=== PATIENT | female | born 1945 | race Caucasian/White ===

== ENCOUNTER 2020-11-17 20:34 | Emergency (ER) | payer BC ==
[2020-11-17 20:53] VITALS: BP 144/75; PULSE 85
--- NOTE | 2020-11-17 21:03 | EDM.PDOC ---
ED HPI GENERAL MEDICAL PROBLEM - General Chief Complaint: Abdominal Pain Stated Complaint: UPPER ABDOMINAL PAIN, DIARRHEA Time Seen by Provider: 11/17/20 20:44 Source of Information: Reports: Patient, Family History Limitations: Reports: No Limitations - History of Present Illness INITIAL COMMENTS - FREE TEXT/NARRATIVE: Is a 75-year-old female. For the last couple of weeks whenever she eats she seems to get pain in the right upper quadrant that goes horizontally across to the left upper quadrant. It feels like it is cramping and rather painful. Apparently today the cramping has gotten worse and is about a 7 out of 10 and so she comes to the ER for evaluation. She does have a history of constipation but it also seems to alternate with diarrhea. She does not feel like she has an impaction in the rectum. She has had her gallbladder removed prior to 2015 and her appendix removed. She has never been diagnosed with irritable bowel syndrome. Today with the abdominal pain she had some nausea but no vomiting. She has had no documented fever no cough no congestion. She denies any urinary type symptoms. She tells me she had a colonoscopy in 2015. Bilateral Upper Abdomen Pain Score (Numeric/FACES): 7 - Related Data Allergies Allergy/AdvReac Type Severity Reaction Status Date / Time Sulfa (Sulfonamide Allergy Vomiting Verified 11/17/20 20:54 Antibiotics) Home Meds: Home Meds Fish Oil/[place]-3 Fatty Acids [Fish Oil 1,000 MG] 1 gm PO DAILY 12/01/14 [History] Lisinopril 20 mg PO DAILY 12/01/14 [History] acetaZOLAMIDE [Diamox] 1,000 mg PO BID 12/01/14 [History] Dicyclomine [Bentyl] 20 mg PO TID PRN #20 tab 11/18/20 [Rx] Ondansetron [Zofran] 4 mg PO Q6H #15 tab 11/18/20 [Rx] Past Medical History HEENT History: Reports: Cataract Cardiovascular History: Reports: None, Hypertension Respiratory History: Reports: None Genitourinary History: Reports: UTI, Recurrent Other Genitourinary History: bladder lift [employer] History: Reports: None Musculoskeletal History: Reports: None Neurological History: Reports: None Psychiatric History: Reports: None Endocrine/Metabolic History: Reports: None Oncologic (Cancer) History: Reports: None Dermatologic History: Reports: None - Past Surgical History HEENT Surgical History: Reports: Cataract Surgery Cardiovascular Surgical History: Reports: None Respiratory Surgical History: Reports: None GI Surgical History: Reports: Appendectomy, Cholecystectomy, Colonoscopy Social & Family History - Family History Family Medical History: No Pertinent Family History - Tobacco Use Tobacco Use Status *Q: Never Tobacco User Second Hand Smoke Exposure: No - Caffeine Use Caffeine Use: Reports: None - Recreational Drug Use Recreational Drug Use: No - Living Situation & Occupation Occupation: Employed ED ROS GENERAL - Review of Systems Review Of Systems: See Below Constitutional: Denies: Fever, Chills HEENT: Reports: No Symptoms Respiratory: Denies: Shortness of Breath, Cough Cardiovascular: Denies: Chest Pain Endocrine: Reports: No Symptoms GI/Abdominal: Reports: Abdominal Pain, Constipation, Diarrhea, Nausea. Denies: Black Stool, Bloody Stool, Vomiting : Reports: No Symptoms Musculoskeletal: Reports: No Symptoms Skin: Reports: No Symptoms Neurological: Reports: No Symptoms Psychiatric: Reports: No Symptoms Hematologic/Lymphatic: Reports: No Symptoms ED EXAM, GI/ABD - Physical Exam Exam: See Below Exam Limited By: No Limitations General Appearance: Alert, WD/WN, No Apparent Distress Eyes: Bilateral: Normal Appearance Ears: Normal External Exam Throat/Mouth: Normal Voice, No Airway Compromise Head: Normocephalic Neck: Supple Respiratory/Chest: No Respiratory Distress, Lungs Clear, Normal Breath Sounds Cardiovascular: Regular Rate, Rhythm, No Murmur GI/Abdominal Exam: Soft, No Organomegaly, No Distention, No Mass, Other (Mildly tender in the right upper quadrant left upper quadrant and midline epigastric, no lower abdominal tenderness noted.). No: Guarding, Rigid, Rebound Back Exam: Full Range of Motion Extremities: Normal Inspection, Normal Range of Motion Neurological: Alert, Oriented Psychiatric: Normal Affect, Normal Mood Skin Exam: Warm, Dry Course - Vital Signs Last Recorded V/S: Last Vital Signs Temp 96.1 F L 11/17/20 20:51 Pulse 85 11/17/20 20:51 Resp 18 11/17/20 20:51 BP 144/75 H 11/17/20 20:51 Pulse Ox 99 11/17/20 20:51 - Orders/Labs/Meds Orders: Active Orders 24 hr Category Date Time Status Abdomen 2V AP Flat Upright [CR] Stat Exams 11/17/20 20:59 Taken Abdomen Pelvis w Cont [CT] Stat Exams 11/17/20 22:16 Taken Sodium Chloride 0.9% [Normal Saline] 100 ml Med 11/18/20 00:30 Active IV ASDIRECTED Medication Orders Sodium Chloride (Normal Saline) 100 mls @ 60 drops/min IV ASDIRECTED SENAIT Last Admin: 11/18/20 00:22 Dose: 60 drops/min Documented by: HAKAN Labs: Laboratory Tests 11/17/20 11/17/20 Range/Units 21:30 21:30 WBC 6.19 (3.98-10.04) K/mm3 RBC 4.40 (3.98-5.22) M/mm3 Hgb 13.5 (11.2-15.7) gm/dl Hct 39.8 (34.1-44.9) % MCV 90.5 D (79.4-94.8) fl MCH 30.7 (25.6-32.2) pg MCHC 33.9 (32.2-35.5) g/dl RDW Std Deviation 42.5 (36.4-46.3) fL Plt Count 183 (182-369) K/mm3 MPV 10.2 (9.4-12.3) fl Neut % (Auto) 82.7 H (34.0-71.1) % Lymph % (Auto) 8.9 L (19.3-51.7) % [place] % (Auto) 6.9 (4.7-12.5) % Eos % (Auto) 1.1 (0.7-5.8) Baso % (Auto) 0.2 (0.1-1.2) % Neut # (Auto) 5.12 (1.56-6.13) K/mm3 Lymph # (Auto) 0.55 L (1.18-3.74) K/mm3 [place] # (Auto) 0.43 H (0.24-0.36) K/mm3 Eos # (Auto) 0.07 (0.04-0.36) K/mm3 Baso # (Auto) 0.01 (0.01-0.08) K/mm3 Manual Slide Review Abnormal smear Sodium 140 (136-145) mEq/L Potassium 3.4 L (3.5-5.1) mEq/L Chloride 108 H (98-107) mEq/L Carbon Dioxide 17 L (21-32) mEq/L Anion Gap 18.4 H (5-15) BUN 24 H (7-18) mg/dL Creatinine 0.9 (0.55-1.02) mg/dL Est Cr Clr Drug Dosing 49.35 mL/min Estimated GFR (MDRD) > 60 (>60) mL/min BUN/Creatinine Ratio 26.7 H (14-18) Glucose 149 H (83-115) mg/dL Calcium 8.2 L (8.5-10.1) mg/dL Total Bilirubin 1.0 (0.2-1.0) mg/dL AST 123 H (15-37) U/L ALT 86 H (14-59) U/L Alkaline Phosphatase 118 H (46-116) U/L C-Reactive Protein 1.2 H* (<1.0) mg/dL Total Protein 6.6 (6.4-8.2) g/dl Albumin 3.5 (3.4-5.0) g/dl Globulin 3.1 gm/dL Albumin/Globulin Ratio 1.1 (1-2) Meds: Medications Generic Name Dose Route Start Last Admin Trade Name Fregregory PRN Reason Stop Dose Admin Sodium Chloride 100 mls @ 60 drops/min 11/18/20 00:30 11/18/20 00:22 Normal Saline IV 60 drops/min ASDIRECTED SENAIT Administration Discontinued Medications Generic Name Dose Route Start Last Admin Trade Name Jessica PRN Reason Stop Dose Admin Dicyclomine HCl 20 mg 11/17/20 21:38 11/17/20 21:45 Dicyclomine 20 Mg/2 Ml Sdv IM 11/17/20 21:39 20 mg ONETIME ONE Administration Dicyclomine HCl Confirm 11/17/20 21:38 11/17/20 21:46 Dicyclomine 20 Mg/2 Ml Sdv Administered 11/17/20 21:39 Not Given Dose 20 mg .ROUTE .STK-MED ONE Hydromorphone HCl 0.5 mg 11/17/20 22:27 11/17/20 22:36 Hydromorphone 0.5 Mg/0.5 Ml Syringe IVPUSH 11/17/20 22:28 0.5 mg ONETIME ONE Administration Iopamidol 100 ml 11/18/20 00:20 11/18/20 00:21 Iopamidol 612 Mg/Ml 100 Ml Bottle IVPUSH 11/18/20 00:21 100 ml ONETIME ONE Administration Ondansetron HCl 4 mg 11/17/20 22:27 11/17/20 22:36 Ondansetron 4 Mg/2 Ml Sdv IVPUSH 11/17/20 22:28 4 mg ONETIME ONE Administration - Radiology Interpretation Free Text/Narrative:: Flat and upright x-ray shows a very large clump of stool in the splenic flexure of the colon and she has air-fluid levels in the right transverse colon and ascending colon. The small bowel does not appear to have air-fluid levels and there are no air-fluid levels after the stool in the splenic flexure. She does not appear to have an impaction. CT scan of the abdomen pelvis with oral and IV contrast did not show any acute changes. There was oral contrast mostly in the stomach and the proximal small bowel loops but no bowel obstruction or pathological bowel wall thickening noted. - Re-Assessments/Exams Free Text/Narrative Re-Assessment/Exam: 11/18/20 01:20 Spoke to the patient and her family regarding the CT scan results. I believe she has an ileus with bowel cramping and she possibly could have irritable bowel syndrome. I am going to put her on a liquid diet. Provide some Zofran for the nausea and Bentyl for the abdominal cramps. If she is not doing much better in the next 2 to 3 days she needs to follow-up with her family doctor for reevaluation. I also suggested that they need to recheck her liver enzymes to make sure they go to normal again. Departure - Departure Time of Disposition: 01:22 Disposition: Home, Self-Care 01 Condition: Fair Clinical Impression: Abdominal cramps, Ileus, unspecified Nausea and vomiting Qualifiers: Vomiting type: unspecified Vomiting Intractability: non-intractable Qualified Code(s): R11.2 - Nausea with vomiting, unspecified - Discharge Information *PRESCRIPTION DRUG MONITORING PROGRAM REVIEWED*: Not Applicable *COPY OF PRESCRIPTION DRUG MONITORING REPORT IN PATIENT JESUS: Not Applicable Prescriptions: Dicyclomine [Bentyl] 20 mg PO TID PRN #20 tab PRN Reason: Abdominal Pain Ondansetron [Zofran] 4 mg PO Q6H #15 tab Instructions: Nausea and Vomiting, Adult, [id number], Abdominal Pain, Adult, [id number] Referrals: Johnathan Schmid Jr, MD [Primary Care Provider] - Forms: ED Department Discharge Additional Instructions: Stay on a liquid diet for the next 2 to 3 days, use the Zofran as needed for nausea and vomiting, use the Bentyl as needed for abdominal cramps, if you are not getting much better in the next 2 to 3 days you need to see your family doctor for reevaluation, also make sure they recheck your liver enzymes to make sure they are coming back down to normal, return to the ER if you have marked worsening of your symptoms. Sepsis Event Note (ED) - Evaluation Sepsis Screening Result: No Definite Risk - Focused Exam Vital Signs: Vital Signs Temp Pulse Resp BP Pulse Ox 11/17/20 20:51 96.1 F L 85 18 144/75 H 99 - My Orders Last 24 Hours: My Active Orders 11/17/20 20:59 Abdomen 2V AP Flat Upright [CR] Stat 11/17/20 22:16 Abdomen Pelvis w Cont [CT] Stat 11/18/20 00:30 Sodium Chloride 0.9% [Normal Saline] 100 ml IV ASDIRECTED - Assessment/Plan Last 24 Hours: My Active Orders 11/17/20 20:59 Abdomen 2V AP Flat Upright [CR] Stat 11/17/20 22:16 Abdomen Pelvis w Cont [CT] Stat 11/18/20 00:30 Sodium Chloride 0.9% [Normal Saline] 100 ml IV ASDIRECTED
[2020-11-17] MEDS ORDERED: Dicyclomine 20 MG/2 ML SDV ONE (21:38)
[2020-11-17] MEDS ORDERED: Dicyclomine 20 MG/2 ML SDV IM ONE (21:38)
[2020-11-17] MEDS ORDERED: Ondansetron 4 MG/2 ML SDV IVPUSH ONE (22:27)
[2020-11-17] MEDS ORDERED: HYDROmorphone 0.5 MG/0.5 ML Syringe IVPUSH ONE (22:27)
[2020-11-18] MEDS ORDERED: Iopamidol 612 MG/ML 100 ML Bottle IVPUSH ONE (00:20)
[2020-11-18] MEDS ORDERED: Sodium Chloride 0.9% 100 ML IV SCH (00:30)
[2020-11-18] MEDS ORDERED: Ondansetron 4 MG Tab.DIS PO ONE (01:29)
[2020-11-18] MEDS ORDERED: Dicyclomine 10 MG Cap PO ONE (01:30)
--- NOTE | 2020-11-19 10:34 | CR ---
Abdomen: Supine and upright views of the abdomen were obtained. Comparison: No previous study. Surgical material is seen within the right lower abdomen. Surgical clips are seen from prior cholecystectomy. Single surgical clip is noted more superiorly within the midline. Mild degenerative change is seen within the spine. Bowel gas pattern appears normal. No free air is seen. Impression: 1. Findings as noted above. 2. Nothing acute is appreciated. Diagnostic code #2
--- NOTE | 2020-11-19 12:06 | CT ---
CT abdomen and pelvis Technique: Multiple axial sections were obtained from the top of the liver inferiorly through the pubic symphysis. Intravenous normal contrast was utilized. Delayed images were also obtained. Reconstructed sagittal and coronal images were obtained. Comparison: Prior CT abdomen study of 11/22/09. Findings: No discrete bowel abnormality is seen. Visualized lung bases show nothing acute. Mild intrahepatic biliary duct dilatation is seen. Findings are fairly stable from prior CT exam. This presumably is from previous cholecystectomy and several surgical clips are seen. Common bile duct is also mildly dilated which is most likely related to previous cholecystectomy. Spleen appears within normal limits. Adrenal glands show no nodule. No abnormality is identified within the pancreas. Kidneys show symmetric contrast enhancement. Small nonobstructing stone is noted within both kidneys. Contrast is noted within nondilated ureters on delayed images as well as within the bladder. Abdominal aorta shows no aneurysm. No retroperitoneal adenopathy or mesenteric abnormalities are seen. Appendix is not visualized with certainty. No pelvic mass or adenopathy is appreciated. Prior surgery is noted within the abdominal wall of the right lower inguinal region. Bone window settings were reviewed. Disc space narrowing is noted at L2-3 and L5-S1 with vacuum phenomena. No acute osseous abnormality is appreciated. Impression: 1. Small nonobstructing calculi within both kidneys. No ureteral dilatation or ureteral stone is seen. 2. Prior biliary duct dilatation most likely related to previous cholecystectomy. 3. Other findings as noted above. Nothing acute is appreciated. Diagnostic code #2 I agree with preliminary report from [facility], finalized on 11/18/20, 2:09 AM CDT
== END 2020-11-18 01:45 | disposition home or self-care (01) ==
LOC: JD.ED 20:34
DX: K56.7 Ileus, unspecified (principal); R11.2 Nausea with vomiting, unspecified; Z88.2 Allergy status to sulfonamides; I10 Essential (primary) hypertension; Z79.899 Other long term (current) drug therapy
CPT/HCPCS: 36415; 74019; 74177; 80053; 85025; 86140; 96372; 96374; 96375; 99284; A9270; J0500; J1170; J2405; Q9967